=== PATIENT | male | born 1955 | race Caucasian/White ===

== ENCOUNTER 2023-06-13 07:20 | Outpatient (CLI) | payer OTHER ==
[2023-06-13] MEDS ORDERED: Magnevist 469MG/ML 20 ML VIAL ONE (09:26)
== END 2023-06-13 07:21 | disposition home or self-care (01) ==
LOC: CSHCT 07:20
PROVIDERS: ATTEND Neurological Surgery
DX: M54.2 Cervicalgia (principal); M54.50 Low back pain, unspecified; Z12.2 Encounter for screening for malignant neoplasm of respiratory organs; R63.4 Abnormal weight loss; Z85.9 Personal history of malignant neoplasm, unspecified; M47.812 Spondylosis without myelopathy or radiculopathy, cervical region; S22.089A Unspecified fracture of T11-T12 vertebra, initial encounter for closed fracture; S32.019A Unspecified fracture of first lumbar vertebra, initial encounter for closed fracture; S32.049A Unspecified fracture of fourth lumbar vertebra, initial encounter for closed fracture; M47.816 Spondylosis without myelopathy or radiculopathy, lumbar region; M43.16 Spondylolisthesis, lumbar region; M48.061 Spinal stenosis, lumbar region without neurogenic claudication; J43.9 Emphysema, unspecified
CPT/HCPCS: 71270; 72156; 72158; 74178; 82565